=== PATIENT | female | born 1970 | race Caucasian/White ===

== ENCOUNTER 2017-08-12 08:55 | Emergency (ER) | payer OTHER ==
[~2017-08-12] VITALS: Ht 167.6 cm; Wt 91.0 kg
[2017-08-12 09:46] LABS: HEMATOCRIT 40.8 % (36.0-46.0); HEMOGLOBIN 13.7 G/DL (11.9-15.5); MCH 30.5 PG (29.0-34.0); MCHC 33.6 G/DL (30.0-36.0); MCV 90.9 FL (83-99); PLATELET COUNT 323 K/uL (156-360); RBC DIS.WIDTH-CV 13.2 % (11.8-14.6); RBC DIS.WIDTH-SD 43.2 % (39-53); RED BLOOD COUNT 4.49 M/uL (3.80-5.20); WHITE BLOOD COUNT 9.3 K/uL (4.1-10.2)
[2017-08-12 09:53] LABS: ALBUMIN 4.4 g/dL (3.2-4.8); CHLORIDE 108 mEq/L (99-109); POTASSIUM 3.9 mEq/L (3.7-5.4); SODIUM 139 mEq/L (136-147)
[2017-08-12 09:56] LABS: GLUCOSE 102 mg/dL (70-99); TOTAL PROTEIN 8.2 g/dL (6.4-8.3)
[2017-08-12 09:57] LABS: TOTAL BILIRUBIN 0.4 mg/dL (0.0-1.0)
[2017-08-12 09:59] LABS: ALKALINE PHOSPHATASE 96 IU/L (3-129); GFR ESTIMATE (CALCULATED) > 59 mL/min/
[2017-08-12 10:00] LABS: UREA NITROGEN (BUN) 11 mg/dL (9-23)
[2017-08-12 10:01] LABS: AST (GOT) 16 IU/L (2-34)
[2017-08-12 10:02] LABS: ALT (GPT) 12 IU/L (3-49)
[2017-08-12 10:08] LABS: QUANTITATIVE HCG < 4.0 MIU/ML
[2017-08-12 10:21] LABS: APPEARANCE SL.HAZY ((CLEAR)); BILIRUBIN NEGATIVE; BLOOD NEGATIVE; COLOR AMBER ((YELLOW)); GLUCOSE (STRIP) 50; KETONES NEGATIVE; LEUKOCYTES SMALL; NITRITE POSITIVE; PROTEIN (STRIP) 100; SPECIFIC GRAVITY 1.023 (1.000-1.030)
[2017-08-12 10:43] LABS: BACTERIA 1+ /HPF; EPITHELIAL CELLS 2+ /HPF; MUCUS 1+ /LPF; RED BLOOD CELLS 0-5 /HPF (0-5); UCUL ADDED? YES; WHITE BLOOD CELLS 30-40 /HPF (0-5)
[2017-08-12 10:44] LABS: HYALINE CASTS 0-5 /LPF; WHITE CELL CASTS 0-5 /LPF
[2017-08-12] MEDS ORDERED: FLEXERIL10 MG PO (11:21)
[2017-08-12] MEDS ORDERED: PERCOCET 5/31 TABLET PO (11:21)
[2017-08-12] MEDS ORDERED: FLOMAX0.4 MG PO (11:21)
[2017-08-12] MEDS ORDERED: MOTRIN800 MG PO (11:21)
[2017-08-12 11:50] VITALS: BP 113/80
== END 2017-08-12 11:51 | disposition home or self-care (01) ==
LOC: EME 08:55
PROVIDERS: Nurse Practitioner Family
DX: N39.0 Urinary tract infection, site not specified (principal); N20.0 Calculus of kidney; R10.9 Unspecified abdominal pain; Z88.0 Allergy status to penicillin
CPT/HCPCS: 74176; 80053; 81003; 84702; 85027; 87086; 99281; 99283; J1885; J3010